=== PATIENT | male | born 1990 | race Caucasian/White ===

== ENCOUNTER 2020-07-05 20:50 | Observation (INO) ==
[2020-07-05] MEDS ORDERED: Ketorolac 15 MG/ML VIAL IVP ONE (21:19)
[2020-07-05] MEDS ORDERED: Morphine Sulfate 2 MG/ML SYRINGE IVP ONE ×2 (21:19→22:29)
[2020-07-05] MEDS ORDERED: 0.9 % Sodium Chloride 1,000 ML IVC ONE (21:19)
[2020-07-05 21:32] LABS: Basophils % 0.3 %; Eosinophils # 0.2 K/mcL (0.0-0.6); Hematocrit 47.7 % (37.5-50.1); Hemoglobin 15.7 g/dL (12.9-16.9); Immature Granulocytes % 0.2 % (0-4); Lymphocytes # 3.3 K/mcL (0.6-4.6); Lymphocytes % 34.4 %; Mean Corpuscular HGB Conc 32.9 g/dL (31.6-35.5); Mean Corpuscular Hemoglobin 27.7 pg (28.0-33.3); Mean Corpuscular Volume 84.1 fL (83.0-100.0); Monocytes # 0.8 K/mcL (0.0-1.3); Monocytes % 8.6 %; Neutrophils # 5.2 K/mcL (1.6-8.9); Platelet Count 227 K/mcL (140-400); Red Blood Count 5.67 M/mcL (4.19-5.50); Red Cell Distribution Width 14.3 % (11.5-14.5); Segmented Neutrophils % 54.5 %; White Blood Count 9.5 K/mcL (4.3-11.1)
[2020-07-05 21:38] LABS: Bilirubin,Urine Negative (Negative); Blood,Urine Moderate (Negative); Clarity,Urine Clear (Clear); Color,Urine Yellow (Yellow); Glucose,Urine (UA) Normal (Normal); Hyaline Casts,Urine Few per lpf (None Seen); Ketones,Urine Negative (Negative); Leukocyte Esterase,Urine Negative (Negative); Mucus,Urine Moderate per lpf (None-Few); Nitrite,Urine Negative (Negative); Protein,Urine Trace mg/dL (Neg-Trace); RBC,Urine 30-50 per hpf (0-3); Specific Gravity,Urine 1.028 (1.010-1.025); Squamous Epithelial Cell,Urine Few per hpf (None-Few); WBC,Urine 0-3 per hpf (0-3)
[2020-07-05 21:46] LABS: Alanine Aminotransferase 15 Units/L (7-52); Albumin 4.1 g/dL (3.5-5.7); Albumin/Globulin Ratio 1.3 (1.1-2.2); Alkaline Phosphatase 75 Units/L (34-104); Aspartate Amino Transferase 24 Units/L (13-39); BUN/Creatinine Ratio 14 (6-26); Bilirubin,Total 0.3 mg/dL (0.3-1.0); Blood Urea Nitrogen 10 mg/dL (6-20); Calcium 8.8 mg/dL (8.6-10.3); Carbon Dioxide 22 mEq/L (23-29); Chloride 107 mEq/L (98-107); Globulin 3.2 g/dL (2.4-3.5); Glucose 110 mg/dL (70-105); Osmolality,Calculated 286 (280-300); Potassium 3.6 mEq/L (3.5-5.1); Sodium 138 mEq/L (136-145); Total Protein 7.3 g/dL (6.4-8.9); eGFR For African Americans > 60 (> 60); eGFR For Non-African Americans > 60 (> 60)
[2020-07-05] MEDS ORDERED: Naloxone 0.4 MG/ML INJ IVP PRN (23:31)
[2020-07-05] MEDS ORDERED: Acetaminophen 325 MG TABLET PO PRN (23:31)
[2020-07-05] MEDS ORDERED: Ondansetron 4 MG/2 ML VIAL IVP PRN (23:31)
[2020-07-06] MEDS: Ketorolac 30 MG/ML VIAL IVP PRN ×2 (00:13→10:01)
[2020-07-06] MEDS: Ringers Solution, Lactated 1,000 ML IVC SCH ×2 (00:13→07:54)
[2020-07-06] MEDS ORDERED: cefTRIAXone 1,000 MG in Water for inj. (sterile) 10 ML IVP SCH (01:24)
[2020-07-06 01:49] LABS: Basophils % 0.5 %; Eosinophils # 0.2 K/mcL (0.0-0.6); Hematocrit 46.4 % (37.5-50.1); Hemoglobin 15.2 g/dL (12.9-16.9); Immature Granulocytes % 0.3 % (0-4); Lymphocytes # 3.3 K/mcL (0.6-4.6); Lymphocytes % 38.6 %; Mean Corpuscular HGB Conc 32.8 g/dL (31.6-35.5); Mean Corpuscular Hemoglobin 28.6 pg (28.0-33.3); Mean Corpuscular Volume 87.2 fL (83.0-100.0); Mean Platelet Volume 11.1 fL (9.4-12.4); Monocytes # 0.6 K/mcL (0.0-1.3); Neutrophils # 4.5 K/mcL (1.6-8.9); Platelet Count 205 K/mcL (140-400); Red Blood Count 5.32 M/mcL (4.19-5.50); Red Cell Distribution Width 14.3 % (11.5-14.5); Segmented Neutrophils % 51.6 %; White Blood Count 8.7 K/mcL (4.3-11.1)
[2020-07-06 02:05] LABS: BUN/Creatinine Ratio 15 (6-26); Blood Urea Nitrogen 10 mg/dL (6-20); Calcium 8.6 mg/dL (8.6-10.3); Carbon Dioxide 24 mEq/L (23-29); Chloride 109 mEq/L (98-107); Glucose 104 mg/dL (70-105); Magnesium 1.8 mg/dL (1.6-2.6); Osmolality,Calculated 289 (280-300); Potassium 3.5 mEq/L (3.5-5.1); Sodium 140 mEq/L (136-145); eGFR For African Americans > 60 (> 60); eGFR For Non-African Americans > 60 (> 60)
[2020-07-06] MEDS ORDERED: *HR* HYDROmorphone PF 0.5 MG/0.5 ML SYRINGE IVP PRN (14:52)
[2020-07-06] MEDS ORDERED: *HR* OxyCODONE Immed Rel 5 MG TABLET PO PRN (14:52)
[2020-07-06] MEDS ORDERED: Ondansetron 4 MG/2 ML VIAL IVP PRN ×2 (14:52→17:05)
[2020-07-06] MEDS ORDERED: Isovue-300 50ML VIAL ONE (15:02)
[2020-07-06] MEDS ORDERED: *HR* Propofol 200 MG/20 ML VIAL IVP ONE ×2 (15:10→15:22)
[2020-07-06] MEDS ORDERED: *HR* Midazolam HCl 2 MG/2 ML VIAL ONE (15:10)
[2020-07-06] MEDS ORDERED: *HR* FentaNYL (PF) 100 MCG/2 ML VIAL ONE (15:10)
[2020-07-06] MEDS ORDERED: Acetaminophen IV 1,000 MG/100 ML BAG ONE (15:13)
[2020-07-06] MEDS ORDERED: Ondansetron 4 MG/2 ML VIAL ONE (15:18)
[2020-07-06] MEDS ORDERED: Lidocaine -MPF 2% 2 ML VIAL ONE (15:18)
[2020-07-06] MEDS ORDERED: Dexamethasone 4 MG/ML VIAL ONE (15:32)
[2020-07-06] MEDS ORDERED: Ketorolac 30 MG/ML VIAL ONE (15:40)
[2020-07-06] MEDS ORDERED: Ketorolac 30 MG/ML VIAL IVP PRN (17:05)
[2020-07-06] MEDS ORDERED: Naloxone 0.4 MG/ML INJ IVP PRN (17:05)
[2020-07-06] MEDS ORDERED: Hyoscyamine SL 0.125 MG TAB.SUBL SL PRN (17:05)
[2020-07-06] MEDS ORDERED: Acetaminophen 325 MG TABLET PO PRN (17:05)
[2020-07-06 17:10] VITALS: BP 135/89
[2020-07-14 07:40] LABS: Calculi Mass 7 mg
== END 2020-07-06 18:47 | disposition left against medical advice (07) ==
LOC: EMEROOARM 20:50 → 3ANU 20:50 → SUATTDRO 23:15 → 3ANU 23:48
PROVIDERS: ADMIT Family Medicine; ATTEND Internal Medicine